=== PATIENT | female | born 1985 | race Caucasian/White ===

== ENCOUNTER 2022-04-26 08:00 | Inpatient (IN) ==
[2022-04-26] MEDS ORDERED: METHYLERGONOVINE 0.2 MG/1 ML AMP IM PRN (09:09)
[2022-04-26] MEDS ORDERED: TRANEXAMIC ACID 1,000 MG in SODIUM CHLORIDE 0.9% 100 ML IV PRN (09:09)
[2022-04-26] MEDS ORDERED: miSOPROStoL 200 MCG TABLET RECTAL PRN (09:09)
[2022-04-26] MEDS ORDERED: OXYTOCIN/LR 20 UNIT/1,000 ML BAG IV ONE ×2 (09:09→23:19)
[2022-04-26] MEDS ORDERED: CARBOPROST TROMETHAMINE 250 MCG/ML AMP IM PRN (09:09)
[2022-04-26] MEDS ORDERED: ONDANSETRON 4 MG/2 ML VIAL IV PRN ×2 (09:09→19:25)
[2022-04-26] MEDS ORDERED: OXYTOCIN/LR 20 UNIT/1,000 ML BAG IV SCH (09:30)
[2022-04-26 09:48] LABS: Basophils % 0.2 % (0.0-0.8); Eosinophils % 0.4 % (0.00-10.9); Hematocrit 34.5 VOL% (35.7-47.0); Hemoglobin 10.9 GM/DL (12.0-16.0); Immature Granulocytes % 1.1 %; Immature Granulocytes Absolute 0.09 #; Lymphocytes # 1.8 10*3/uL (1.4-4.0); Lymphocytes % 21.4 % (21.3-54.2); Mean Corpuscular HGB Conc 31.6 GM/DL (32-36); Mean Platelet Volume 10.1 FL (9.6-12.0); Monocytes # 0.6 10*3/uL (0.11-0.8); Monocytes % 7.1 % (1.7-12.7); Neutrophils % 69.8 % (38.7-73.9); Platelet Count 276 T/CUMM (130-400); Red Blood Count 3.92 MC/CUMM (3.8-5.5); White Blood Count 8.4 T/CUMM (4-12)
[2022-04-26] MEDS: LACTATED RINGERS 1,000 ML IV SCH ×3 (10:25→22:08)
[2022-04-26] MEDS ORDERED: MEPERIDINE 50 MG/1 ML VIAL IV PRN (13:33)
[2022-04-26] MEDS ORDERED: BUTORPHANOL 2 MG/ML VIAL IV PRN (13:33)
[2022-04-26] MEDS ORDERED: hydrOXYzine HCL 25 MG/1 ML VIAL IM PRN (19:25)
[2022-04-26] MEDS ORDERED: diphenhydrAMINE 50 MG/1 ML VIAL IV PRN ×2 (19:25)
[2022-04-26] MEDS ORDERED: NALOXONE 0.4 MG/ML VIAL IV PRN (19:25)
[2022-04-26] MEDS ORDERED: ePHEDrine 50 MG/ML VIAL IV PRN (19:25)
[2022-04-26] MEDS ORDERED: PROMETHAZINE 25 MG/1 ML VIAL IM PRN (19:25)
[2022-04-26] MEDS ORDERED: fentaNYL 2 MCG/ROPIV 0.2% EPID 100 ML EPIDURAL SCH (19:30)
[2022-04-26] MEDS ORDERED: CITRIC ACID/SODIUM CITRATE 30 ML UDCUP PO ONE (20:00)
[2022-04-26] MEDS ORDERED: FAMOTIDINE 20 MG/2 ML VIAL IV ONE (20:00)
[2022-04-26 22:23] LABS: RBC,Urine 2 /HPF (0-4); Squamous Epithelial Cell,Urine Occasional /HPF (0-10)
[2022-04-26 22:25] LABS: Bilirubin,Urine Negative (Negative); Blood, Urine Trace mg/dL (Negative); Glucose,Urine (UA) Negative (Negative); Ketones,Urine >=160 mg/dL (Negative); Nitrite,Urine Negative (Negative); Protein,Urine Negative (Negative); Urine Appearance Clear (Clear); Urine Color Yellow (Yellow); Urine Urobilinogen 0.2 eU/dL (<2.0); Urine pH 6.5 (4.5-8.0)
[2022-04-26] MEDS ORDERED: miSOPROStoL 200 MCG TABLET ONE (23:19)
[2022-04-26] MEDS ORDERED: TRANEXAMIC ACID 1,000 MG/10 ML VIAL ONE (23:19)
[2022-04-26] MEDS ORDERED: SODIUM CHLORIDE 0.9% 0 ML IV ONE (23:19)
[2022-04-26] MEDS ORDERED: METHYLERGONOVINE 0.2 MG/1 ML AMP ONE (23:20)
[2022-04-26] MEDS ORDERED: CARBOPROST TROMETHAMINE 250 MCG/ML AMP IM ONE (23:20)
[2022-04-27] MEDS ORDERED: HYDROCORTISONE 2.5% RECTAL CREAM 30 GM TUBE TOP PRN (00:25)
[2022-04-27] MEDS ORDERED: ONDANSETRON 4 MG/2 ML VIAL IV PRN (00:25)
[2022-04-27] MEDS ORDERED: LANOLIN 50% CREAM 0.3 OZ TUBE TOP PRN (00:25)
[2022-04-27] MEDS ORDERED: RHO(D) IMMUNE GLOBULIN 300 MCG SYRINGE IM ONE (00:25)
[2022-04-27] MEDS ORDERED: MEASLES/MUMPS/RUBELLA VACCINE 0.5 ML VIAL SUBCUT ONE (00:25)
[2022-04-27] MEDS ORDERED: DIPH/TET/ACEL PERT BOOSTER VACCINE 0.5 ML VIAL IM ONE (00:25)
[2022-04-27] MEDS ORDERED: OXYTOCIN/LR 20 UNIT/1,000 ML BAG IV ONE (00:25)
[2022-04-27] MEDS ORDERED: oxyCODONE/ACETAMINOPHEN 5-325 MG TABLET PO PRN (00:25)
[2022-04-27] MEDS ORDERED: BISACODYL 10 MG SUPP RECTAL PRN (00:25)
[2022-04-27] MEDS ORDERED: ACETAMINOPHEN 325 MG TABLET PO PRN (00:25)
[2022-04-27] MEDS ORDERED: BENZOCAINE 20%/MENTHOL 0.5% SPRAY 56 GM CAN TOP PRN (00:25)
[2022-04-27] MEDS ORDERED: WITCH HAZEL PADS 100/JAR TOP PRN (00:25)
[2022-04-27] MEDS: IBUPROFEN 800 MG TABLET PO PRN ×2 (04:42→15:59)
[2022-04-27] MEDS: oxyCODONE/ACETAMINOPHEN 5-325 MG TABLET PO PRN ×3 (06:00→20:28)
[2022-04-27 06:06] LABS: Basophils % 0.2 % (0.0-0.8); Eosinophils % 0.1 % (0.00-10.9); Hematocrit 32.9 VOL% (35.7-47.0); Hemoglobin 10.3 GM/DL (12.0-16.0); Immature Granulocytes % 0.7 %; Immature Granulocytes Absolute 0.08 #; Lymphocytes # 1.4 10*3/uL (1.4-4.0); Lymphocytes % 12.5 % (21.3-54.2); Mean Corpuscular HGB Conc 31.3 GM/DL (32-36); Mean Corpuscular Volume 88.7 FL (87-102); Mean Platelet Volume 10.1 FL (9.6-12.0); Monocytes # 0.6 10*3/uL (0.11-0.8); Monocytes % 5.8 % (1.7-12.7); Neutrophils % 80.7 % (38.7-73.9); Platelet Count 238 T/CUMM (130-400); Red Blood Count 3.71 MC/CUMM (3.8-5.5); Red Cell Distribution Width 15.2 % (9.3-17.3)
[2022-04-27] MEDS: DOCUSATE SODIUM 100 MG CAPSULE PO SCH ×2 (08:34→20:28)
[2022-04-28] MEDS: oxyCODONE/ACETAMINOPHEN 5-325 MG TABLET PO PRN ×2 (02:27→11:45)
[2022-04-28] MEDS: IBUPROFEN 800 MG TABLET PO PRN ×2 (03:54→11:46)
[2022-04-28] MEDS: DOCUSATE SODIUM 100 MG CAPSULE PO SCH (09:57)
[2022-04-28 14:23] VITALS: BP 139/63
== END 2022-04-28 14:40 | disposition home or self-care (01) | DRG 560 ==
LOC: N.LDOUT 08:00 → N.LD 08:03 → N.OB 04-27 02:05
PROVIDERS: ADMIT Obstetrics & Gynecology; ATTEND Obstetrics & Gynecology